=== PATIENT | female | born 1960 ===

== ENCOUNTER 2022-04-25 04:40 | Day surgery (SDC) | payer OTHER ==
[2022-04-20 17:07] VITALS: BMI 25.4
[2022-04-25] MEDS ORDERED: IBUPROFEN 800 MG/8 ML IJ IVPB PRN (12:41)
[2022-04-25] MEDS ORDERED: ONDANSETRON 4 MG/2 ML VIAL IVPUSH PRN (12:41)
[2022-04-25] MEDS ORDERED: oxyCODONE HCL 5 MG TABLET PO PRN (12:41)
[2022-04-25] MEDS ORDERED: IBUPROFEN 600 MG TABLET (FP) PO PRN (12:41)
[2022-04-25] MEDS ORDERED: ELECTROLYTE-148 SOLN 1,000 ML IV SCH (12:45)
[2022-04-25] MEDS ORDERED: BUPIVACAINE HCL/PF 0.25% (2.5MG/ML) 10 ML VIAL ONE (12:48)
[2022-04-25] MEDS ORDERED: SCOPOLAMINE HYDROBROMIDE 1 PATCH PATCH.TD72 ONE (12:55)
[2022-04-25] MEDS ORDERED: DEXMEDETOMIDINE HCL 200 MCG/2 ML IVPB ONE (12:55)
[2022-04-25] MEDS ORDERED: PROMETHAZINE HCL 25 MG/1 ML VIAL ONE (12:56)
[2022-04-25] MEDS ORDERED: PROPOFOL 20 ML ONE ×4 (12:58→13:43)
[2022-04-25] MEDS ORDERED: LIDOCAINE HCL/PF 2% SDV 5ML VIAL ONE (13:08)
[2022-04-25] MEDS ORDERED: ROCURONIUM BROMIDE 100 MG/10 ML VIAL ONE (13:08)
[2022-04-25] MEDS ORDERED: MIDAZOLAM HCL 2 MG/2 ML SINGLE DOSE VIAL ONE (13:08)
[2022-04-25] MEDS ORDERED: KETAMINE HCL 200 MG/20 ML VIAL ONE (13:38)
[2022-04-25] MEDS ORDERED: BUPIVACAINE HCL/PF 0.25% (2.5MG/ML) 10 ML VIAL IJ ONE (14:06)
[2022-04-25] MEDS ORDERED: SUGAMMADEX SODIUM 200 MG/2 ML VIAL ONE (14:11)
[2022-04-25] MEDS ORDERED: KETOROLAC TROMETHAMINE 30 MG/1 ML VIAL ONE (14:13)
[2022-04-25] MEDS ORDERED: LACTATED RINGERS SOLUTION 1,000 ML IV SCH (14:30)
[2022-04-25] MEDS ORDERED: oxyCODONE HCL 5 MG TABLET ONE (18:34)
[2022-04-25 18:55] VITALS: BP 132/75; PULSE 59; TEMP 97.5
== END 2022-04-25 19:14 | disposition home or self-care (01) ==
LOC: JASU-SURG 04:40
PROVIDERS: ATTEND Obstetrics & Gynecology
PROC: 0UDB7ZZ Extraction of Endometrium, Via Natural or Artificial Opening (ICD-10-PCS; 2022-04-25)
PROC: 0UT24ZZ Resection of Bilateral Ovaries, Percutaneous Endoscopic Approach (ICD-10-PCS; principal; 2022-04-25 12:00)
PROC: 0UT74ZZ Resection of Bilateral Fallopian Tubes, Percutaneous Endoscopic Approach (ICD-10-PCS; 2022-04-25 12:00)
DX: N83.201 Unspecified ovarian cyst, right side (principal); N94.10 Unspecified dyspareunia
CPT/HCPCS: 88305-TC; 88307-TC; 88329; 94760

== ENCOUNTER 2024-07-13 14:43 | Emergency (ER) | payer OTHER ==
[2024-07-13 15:14] VITALS: BP 99/71; PULSE 80; RESP 18; TEMP 98.2; BMI 24.9
[2024-07-13] MEDS ORDERED: ACETAMINOPHEN 325 MG TABLET (FP) ONE (16:08)
[2024-07-13] MEDS: ACETAMINOPHEN 500 MG TABLET (FP) PO ONE (16:28)
[2024-07-13 16:33] LABS: EPI CELLS 10 /uL (0-25.1); HYALINE CASTS 0 /uL (0-3.1); URINE APPEARANCE TURBID; URINE BACTERIA 8 /uL (0-1359); URINE BILIRUBIN NEGATIVE (NEGATIVE); URINE COLOR YELLOW; URINE GLUCOSE (UA) NEGATIVE (NEGATIVE); URINE KETONE NEGATIVE (NEGATIVE); URINE LEUK ESTERASE TRACE (NEGATIVE); URINE NITRITE NEGATIVE (NEGATIVE); URINE PROTEIN NEGATIVE (NEGATIVE); URINE RBC 21 /uL (0-23.9); URINE UROBILINOGEN 0.2 mg/dL (0.2-1.0); URINE WBC 10 /uL (0-25.8)
[2024-07-13] MEDS ORDERED: CEPHALEXIN MONOHYDRATE 500 MG CAPSULE (UD) ONE (17:11)
[2024-07-13] MEDS: CEPHALEXIN MONOHYDRATE 500 MG CAPSULE (UD) PO ONE (17:14)
== END 2024-07-13 19:05 | disposition home or self-care (01) ==
LOC: JER 14:43
DX: R35.0 Frequency of micturition (principal); R10.30 Lower abdominal pain, unspecified; R30.0 Dysuria
CPT/HCPCS: 74176-TC; 76705-TC; 81003; 87086; 99284-25